=== PATIENT | female | born 1985 | race Hispanic/Latino ===

== ENCOUNTER 2016-08-01 21:55 | Emergency (ER) | payer OTHER ==
[2016-08-01 22:05] VITALS: BP 127/76; PULSE 63; RESP 16; TEMP 97.6; O2SAT 99
[2016-08-01] MEDS ORDERED: Sodium Chloride 0.9% 1,000 ML IV STA (22:14)
[2016-08-01 22:36] LABS: BASO # 0.1 K/uL (0.0-0.2); BASO % 0.9 % (0.0-2.0); EOS # 0.2 K/uL (0.0-0.7); EOS % 2.3 % (0.0-4.0); HEMATOCRIT 38.1 % (34.0-47.0); LYMPH # 2.7 K/uL (1.0-4.3); LYMPH % 30.6 % (20.0-40.0); MEAN CELL VOLUME 91.9 fl (81.0-99.0); MEAN CORPUSCULAR HEMOGLOBIN 31.2 pg (27.0-31.0); MEAN CORPUSCULAR HGB CONC 33.9 g/dL (33.0-37.0); MEAN PLATELET VOLUME 9.2 fl (7.2-11.7); MONO # 0.6 K/uL (0.0-0.8); MONO % 7.4 % (0.0-10.0); NEUT # 5.2 K/uL (1.8-7.0); NEUT % 58.8 % (50.0-75.0); NRBC % 0.1 % (0.0-0.0); RED CELL DISTRIBUTION WIDTH 13.2 % (11.5-14.5); WHITE BLOOD COUNT 8.8 K/uL (4.8-10.8)
[2016-08-01 22:51] LABS: ALB/GLOB RATIO 1.4 (1.0-2.1); ALKALINE PHOSPHATASE 60 U/L (38-126); ALT/SGPT 36 U/L (9-52); AST/SGOT 31 U/L (14-36); BILIRUBIN,TOTAL 0.4 mg/dl (0.2-1.3); BLOOD UREA NITROGEN 10 mg/dl (7-17); CARBON DIOXIDE 27 mmol/L (22-30); CHLORIDE 101 mmol/L (98-107); GLUCOSE,RANDOM 89 mg/dL (65-105); POTASSIUM 4.1 MMOL/L (3.6-5.0); SODIUM 136 mmol/l (132-148); TOTAL PROTEIN 7.8 G/DL (6.3-8.2)
[2016-08-01 23:07] LABS: GFR AFRICAN-AMERICAN > 60
[2016-08-01 23:21] LABS: RBC URINE 2 /hpf (0-3); URINE BILIRUBIN NEGATIVE (NEGATIVE); URINE BLOOD NEGATIVE (NEGATIVE); URINE COLOR YELLOW (YELLOW); URINE GLUCOSE (UA) NEG (Normal); URINE KETONE NEGATIVE (NEGATIVE); URINE LEUKOCYTE ESTERASE NEG Leu/uL (Negative); URINE PROTEIN NEGATIVE (NEGATIVE); URINE UROBILINOGEN 0.2-1.0 mg/dL (0.2-1.0); WBC URINE 1 /hpf (0-5)
[2016-08-01] MEDS ORDERED: Alum-Mag Hydrox-Simethicone Susp (30 mL) PO STA (23:49)
[2016-08-01] MEDS ORDERED: Alum-Mag Hydrox-Simethicone Susp (30 mL) PO ONE (23:49)
--- NOTE | 2016-08-01 23:49 | ED PDOC ---
HPI: Abdomen Time Seen by Provider: 08/01/16 22:14 Chief Complaint (Nursing): GI Problem Chief Complaint (Provider): abdominal pain History Per: Patient History/Exam Limitations: no limitations Onset/Duration Of Symptoms: Days (1) Current Symptoms Are (Timing): Still Present Severity: Moderate Pain Scale Rating Of: 4 Location Of Pain/Discomfort: Epigastric Quality Of Discomfort: Sharp, Pressure, Stabbing Associated Symptoms: Nausea, Diarrhea (x1), Loss Of Appetite. denies: Fever, Chills, Vomiting, Back Pain, Chest Pain, Constipation, Urinary Symptoms Exacerbating Factors: Movement Alleviating Factors: Rest Last Bowel Movement: Today Additional Complaint(s): 31yo f in ED for eval of epigastric pain x 1d-states she has a hx of gastritis and ulcers. however admits this pain is unlike her previous pain due to ulcers. pt states that she is nauseous, however without vomiting and 1 episode of diarrhea. admits she has dec appetite and has a general feeling of being unwell. Pt also states she has been having vaginal d/c since this AM-ceballos with foul smell. feels its similar to Bacterial vaginosis that she had treated two weeks ago. pt admits to unprotected sex, however does not feel it is an STD at this time. no pelvic pain no back pain no fever no chills no hematuira no dysuria . Abnormal Vaginal Bleeding: No Past Medical History Reviewed: Historical Data, Nursing Documentation, Vital Signs Vital Signs: Last Vital Signs Temp 97.6 F 08/01/16 22:02 Pulse 63 08/01/16 22:02 Resp 16 08/01/16 22:02 BP 127/76 08/01/16 22:02 Pulse Ox 99 08/01/16 22:02 - Medical History PMH: Gastritis - Family History Family History: States: No Known Family Hx - Allergies Allergies/Adverse Reactions: Allergies Allergy/AdvReac Type Severity Reaction Status Date / Time No Known Allergies Allergy Verified 08/01/16 22:14 Review of Systems ROS Statement: Except As Marked, All Systems Reviewed And Found Negative Constitutional: Positive for: Weakness. Negative for: Fever, Chills Respiratory: Negative for: Cough, Shortness of Breath Gastrointestinal: Positive for: Nausea, Abdominal Pain, Diarrhea. Negative for : Vomiting Genitourinary Female: Positive for: Vaginal Discharge. Negative for: Dysuria, Frequency, Incontinence, Hematuria, Vaginal Bleeding, Pelvic Pain Musculoskeletal: Negative for: Back Pain Skin: Negative for: Rash Physical Exam - Reviewed Nursing Documentation Reviewed: Yes Vital Signs Reviewed: Yes - Physical Exam Appears: Positive for: Non-toxic, No Acute Distress, Uncomfortable Head Exam: Positive for: ATRAUMATIC, NORMAL INSPECTION, NORMOCEPHALIC Skin: Positive for: Normal Color, Warm, DRY Eye Exam: Positive for: EOMI, Normal appearance, PERRL Cardiovascular/Chest: Positive for: Regular Rate, Rhythm Respiratory: Positive for: CNT, Normal Breath Sounds Gastrointestinal/Abdominal: Positive for: Bowel Sounds, Soft, Tenderness (RUQ and epigastric pain. ). Negative for: Normal Exam, Organomegaly, Mass, Distended, Guarding, Rebound, Hernia, Asicites Back: Positive for: Normal Inspection. Negative for: L CVA Tenderness, R CVA Tenderness Extremity: Positive for: Normal ROM Neurologic/Psych: Positive for: Alert, Oriented - Laboratory Results Result Diagrams: 08/01/16 22:18 08/01/16 22:41 - ECG O2 Sat by Pulse Oximetry: 99 - Progress ED Course And Treament: impression: gastritis vs gallbladder diease. pt will get fluids IV, pepcid and zofran cbc./cmp./lipase/UA/ US of RUQ Re-evaluation Time: 23:58 Condition: Re-examined (improving but pt still has some buring sensation./pain to epigastric area. trialed with maalox. ) Disposition - Clinical Impression Clinical Impression: Abdominal pain - Patient ED Disposition Is Patient to be Admitted: Transfer of Care - Disposition Disposition Time: 23:58 Condition: FAIR Patient Signed Over To: Iris Sandoval Handoff Comments: pending US
--- NOTE | 2016-08-02 02:36 | ED PDOC ---
- Laboratory Results Result Diagrams: 08/01/16 22:18 08/01/16 22:41 - ECG O2 Sat by Pulse Oximetry: 99 - Progress ED Course And Treament: Case endorsed to ghost writer from [employer] [facility] pending u/s EXAM: US Abdomen Limited, Right Upper Quadrant CLINICAL HISTORY: The patient is a 31 years female; Pain; Abdominal pain; Epigastric; Additional info: Ruq pain 08/01/2016 10:33 PM TECHNIQUE: Real-time ultrasound of the right upper quadrant with image documentation. COMPARISON: No relevant prior studies available. FINDINGS: Liver: Mild hepatomegaly.. Gallbladder: Unremarkable. No gallstones. Common bile duct: 3.8 mm. Pancreas: Unremarkable as visualized. Right kidney: Unremarkable. No hydronephrosis. IMPRESSION: No evidence of cholelithiasis. Patient educated on findings, discharged with rx nexium, zofran. Advised diet modification. Follow up GI Return to ED for worsening/concerning symptpms. Disposition - Clinical Impression Clinical Impression: Abdominal pain - POA Present On Arrival: None - Disposition Disposition: Routine/Home Disposition Time: 02:26 Condition: IMPROVED Prescriptions: Esomeprazole Magnesium [Nexium] 40 mg PO DAILY #15 capsule. Ondansetron ODT [Zofran ODT] 4 mg PO Q8 PRN #10 odt PRN Reason: Nausea/Vomiting Instructions: Abdominal Pain (ED) Forms: [facility] ED School/Work Excuse
--- NOTE | 2016-08-02 10:24 | US ---
HISTORY: RUQ pain COMPARISON: None. TECHNIQUE: Sonographic evaluation of the right upper quadrant of the abdomen. FINDINGS: LIVER: Measures 17.7 cm in length. Normal echogenicity of the liver parenchyma. No mass. No intrahepatic bile duct dilatation. GALLBLADDER: Unremarkable. No gallstones. COMMON BILE DUCT: Measures 3.8 mm. No stones. No dilatation. PANCREAS: Unremarkable as visualized. No mass. No ductal dilatation. RIGHT KIDNEY: Measures 10.4 x 5.2 x 3.9 cm in length. Normal echogenicity. No calculus, mass, or hydronephrosis. AORTA: No aneurysmal dilatation. IVC: Unremarkable. OTHER FINDINGS: None . IMPRESSION: No evidence of acute pathology at the right upper abdomen. Preliminary report was submitted by [facility].
== END 2016-08-02 03:19 | disposition home or self-care (01) ==
LOC: H.ER 21:55
DX: R10.13 Epigastric pain (principal); R11.0 Nausea; R19.7 Diarrhea, unspecified